=== PATIENT | male | born 1985 | race Caucasian/White ===

== ENCOUNTER 2017-01-19 23:58 | Emergency (ER) | payer BC ==
[2017-01-20 00:18] VITALS: BP 159/94
[2017-01-20] MEDS ORDERED: Benoxinate/Fluorescein 0.4-0.25% Ophth Soln 5 ML Bottle EYELF ONE (00:46)
[2017-01-20] MEDS ORDERED: Proparacaine 0.5% Ophth Soln 15 ML Bottle EYELF ONE (00:46)
[2017-01-20] MEDS ORDERED: Erythromycin Base 0.5% Ophth Oint 1 GM Tube EYEBOTH ONE (01:23)
--- NOTE | 2017-01-20 01:33 | EDM.PDOC ---
ED HPI GENERAL MEDICAL PROBLEM - General Chief Complaint: Eye Problems Stated Complaint: FOREIGN OBJECT IN LEFT EYE Time Seen by Provider: 01/20/17 00:45 - History of Present Illness INITIAL COMMENTS - FREE TEXT/NARRATIVE: 31-year-old male presents to emergency room with a foreign body sensation in his left eye. This started a short time ago. 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 However he did not develop any symptoms until about an hour ago port feels like he is having increasing pain and foreign body sensation in his left eye he is also having some pain in his right eye but this is much milder compared to his left. 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 He has increased redness on the skin of his face especially around his eyes this is confirmed by the patient's . Left Eye Pain Score (Numeric/FACES): 8 - Related Data Allergies Allergy/AdvReac Type Severity Reaction Status Date / Time aspirin Allergy Respiratory Verified 01/20/17 00:18 Distress Home Meds: Home Meds Albuterol Sulfate [Albuterol Sulfate HFA] 2 inh INH ASDIRECTED 07/10/14 [History ] Past Medical History - Past Surgical History HEENT Surgical History: Reports: Naso-Sinus Surgery Social & Family History - Tobacco Use Smoking Status *Q: Current Every Day Smoker Years of Tobacco use: 15 Packs/Tins Daily: 0.5 - Caffeine Use Caffeine Use: Reports: Energy Drinks, Soda - Recreational Drug Use Recreational Drug Use: Yes Drug Use in Last 12 Months: No ED ROS GENERAL - Review of Systems Review Of Systems: See Below Constitutional: Reports: No Symptoms HEENT: Reports: Eye Pain Respiratory: Reports: No Symptoms Cardiovascular: Reports: No Symptoms GI/Abdominal: Reports: No Symptoms ED EXAM GENERAL W FULL EYE - Physical Exam Exam: See Below Exam Limited By: No Limitations General Appearance: Alert, No Apparent Distress Eye Exam: Bilateral Eye: Conjunctival Injection, EOMI, PERRL Visual Acuity (R) 20/: 20 Visual Acuity (L) 20/: 20 With Correction: No Eyelids: Bilateral: Normal Appearance Conjunctiva & Sclera: Bilateral: Injected Cornea Exam: Left: Examined with Flourescein (Findings punctate marking) Extraocular Movements: Bilateral: Intact Pupils: Normal Accommodation Anterior Chamber: Bilateral: Normal Appearance Respiratory/Chest: No Respiratory Distress, Lungs Clear, Normal Breath Sounds Cardiovascular: Regular Rate, Rhythm, No Edema, No Murmur Course - Vital Signs Last Recorded V/S: Last Vital Signs Temp 36.8 C 01/20/17 00:13 Pulse 96 01/20/17 00:13 Resp 18 01/20/17 00:13 BP 159/94 H 01/20/17 00:13 Pulse Ox 98 01/20/17 00:13 - Orders/Labs/Meds Meds: Medications Discontinued Medications Generic Name Dose Route Start Last Admin Trade Name Aislinn PRN Reason Stop Dose Admin Erythromycin 1 gm 01/20/17 01:23 01/20/17 01:26 Erythromycin 0.5% Ophth Oint EYEBOTH 01/20/17 01:24 1 gm ONETIME ONE Administration Fluorescein Sodium/Benoxinate HCl 1 ml 01/20/17 00:46 01/20/17 01:00 Fluress Ophth Soln EYELF 01/20/17 00:47 1 ml ONETIME ONE Administration Proparacaine HCl 1 ml 01/20/17 00:46 01/20/17 00:55 Proparacaine 0.5% Ophth Soln EYELF 01/20/17 00:47 1 ml ONETIME ONE Administration - Re-Assessments/Exams Free Text/Narrative Re-Assessment/Exam: 01/20/17 01:39 Patient's left eye was examined very carefully no foreign bodies identified slit lamp examination done with fluoroscien seen 2 no corneal foreign bodies identified nor conjunctiva foreign bodies identified. Departure - Departure Time of Disposition: 01:27 Disposition: Home, Self-Care 01 Clinical Impression: Photokeratitis of both eyes - Discharge Information Referrals: Brianda Rendon NP [Primary Care Provider] - Forms: ED Department Discharge Additional Instructions: Return to the emergency room with any questions or problems or worsening symptoms. Follow up with your eye doctor on Saturday for recheck. You have been started on erythromycin ointment use a third to a half inch in each eye every 4 hours while awake. You've been given a prescription for [place], hydrocodone, this is a pain pill use 1 or 2 every 4-6 hours as needed for pain. Do not drive or return to work within 12 hours of using this.
[2017-01-20] MEDS ORDERED: Erythromycin Base 0.5% Ophth Oint 1 GM Tube ONE (01:35)
== END 2017-01-20 01:40 | disposition home or self-care (01) ==
LOC: JD.ED 23:58
DX: H16.133 Photokeratitis, bilateral (principal); F17.210 Nicotine dependence, cigarettes, uncomplicated; Z88.6 Allergy status to analgesic agent
CPT/HCPCS: 99283; A9270

== ENCOUNTER 2022-07-25 19:28 | Emergency (ER) | payer OTHER ==
[2022-07-25] MEDS ORDERED: Sodium Chloride 0.9% 1,000 ML IV ONE (20:03)
[2022-07-25] MEDS ORDERED: Sodium Chloride 0.9% 10 ML Syringe FLUSH PRN (20:03)
[2022-07-25 22:46] VITALS: BP 163/93; PULSE 87
== END 2022-07-25 22:47 | disposition home or self-care (01) ==
LOC: JD.ED 19:28
DX: F41.9 Anxiety disorder, unspecified (principal); F43.0 Acute stress reaction; F10.10 Alcohol abuse, uncomplicated; I10 Essential (primary) hypertension; J45.909 Unspecified asthma, uncomplicated; Y90.0 Blood alcohol level of less than 20 mg/100 ml; Z72.0 Tobacco use; Z88.8 Allergy status to other drugs, medicaments and biological substances; Z79.899 Other long term (current) drug therapy
CPT/HCPCS: 36415; 71045; 80053; 80307; 83735; 83880; 84484; 85025; 85379; 85610; 85730; 93005; 99285; J3490; J7030